=== PATIENT | male | born 1965 | race Caucasian/White ===

== ENCOUNTER 2022-06-08 00:45 | Inpatient (IN) | payer BC ==
[~2022-06-08] VITALS: Ht 160 cm; Wt 78.9 kg
[2022-06-08 01:13] VITALS: BP 191/114
--- NOTE | 2022-06-08 01:27 | NUR ---
to bed 8
[2022-06-08] MEDS ORDERED: LABETALOL 20 MG/4 ML VIAL IVP ONE (01:45)
[2022-06-08] MEDS ORDERED: NACL 0.9% 1,000 ML IV ONE (01:45)
[2022-06-08] MEDS ORDERED: INSULIN REGULAR, HUMAN 100 UNIT/ML VIAL IVP ONE ×2 (01:45→04:20)
--- NOTE | 2022-06-08 01:46 | NUR ---
56YR OLD MALE BIB SELF C/O HEADACHE DIZZYNESS X1 DAY. PT IS HYPERTENSIVE AT 173/117. IS DIZZY AND HEADACHE X1DAY. PT STATES FEELING OFF BALANCE. A&OX4. ON BEDSIDE CARDAIC MONITOR. PT IS GERMAN SPEAKING ONLY. HOB ELEVATED BED AT LOWEST POSITION WITH SIDE RAILS UP X2 NKDA PROSTATE
[2022-06-08 02:06] LABS: BASOPHILS % (AUTO) 0.6 % (0.0-2.0); EOSINOPHILS # (AUTO) 0.1 K/uL (0-0.4); EOSINOPHILS % (AUTO) 1.5 % (0.0-4.0); HEMATOCRIT 44.7 % (36-52); HEMOGLOBIN 15.2 g/dL (12.0-18.0); LYMPHOCYTES # (AUTO) 2.7 K/uL (2.0-11.5); LYMPHOCYTES % (AUTO) 33.7 % (20.5-51.1); MEAN CORPUSCULAR HEMOGLOBIN 28 pg (27-31); MEAN CORPUSCULAR HGB CONC 34 g/dL (33-37); MEAN CORPUSCULAR VOLUME 82.5 fL (80-94); MONOCYTES # (AUTO) 0.5 K/uL (0.8-1.0); MONOCYTES % (AUTO) 6.9 % (1.7-9.3); NEUTROPHILS # (AUTO) 4.6 K/uL (1.8-7.7); NEUTROPHILS % (AUTO) 57.3 % (42.2-75.2); PLATELET COUNT (AUTO) 256 K/uL (140-450); RED BLOOD CELL COUNT(AUTO) 5.42 MIL/uL (4.20-6.10)
[2022-06-08 02:20] LABS: ALBUMIN 4.1 g/dL (3.4-5.0); CARBON DIOXIDE 29.3 mmol/L (21-32); CHLORIDE 97 mmol/L (98-107); GFR ARICAN-AMERICAN 100 mL/min (>90); POTASSIUM 3.3 mmol/L (3.5-5.1); SODIUM SERUM 136 mmol/L (136-145); TOTAL BILIRUBIN 0.3 mg/dL (0.0-1.0); UREA NITROGEN, BLOOD 14 mg/dL (7-18)
[2022-06-08 02:33] LABS: GLUCOSE 408 mg/dL (74-106)
[2022-06-08] MEDS ORDERED: MORPHINE SULFATE 4 MG/ML SYR IVP ONE (02:55)
--- NOTE | 2022-06-08 04:08 | NUR ---
PT RESTING IN BED ON BEDSIDE EXPEDITER. PT PAIN LEVEL 5/10. HOB ELEVATED. RESP EVEN AND UNLABORED.
[2022-06-08] MEDS ORDERED: ONDANSETRON 4 MG/2 ML VIAL IVP ONE (04:40)
--- NOTE | 2022-06-08 04:55 | NUR ---
Pt still having nausea and vomiting. Zofran 4mg IV given
--- NOTE | 2022-06-08 06:10 | NUR ---
Pt able to rest at this time. Headache improved to 5/10. No vomiting at this time
[2022-06-08] MEDS: BLOOD GLUCOSE MONITORING 1 DEV DEV FS SCH ×8 (07:00→22:29)
--- NOTE | 2022-06-08 07:20 | NUR ---
ASSUMED PATIENT CARE, NURSING ASSESSMENT COMPLETED.
--- NOTE | 2022-06-08 09:26 | NUR ---
DISPO AND MEDICAL DECISION MAKING, INPATIENT ADMISSION FOR FURTHER MANAGEMENT. PATIENT CARE REPORT TO TIFFANY, PATIENT'S SON UPDATED OF PATIENT'S ADMISSION.
[2022-06-08] MEDS: NACL 0.9% 1,000 ML IV SCH ×2 (09:45→16:43)
--- NOTE | 2022-06-08 09:50 | NUR ---
RECEIVE 56YR MALE PATIENT FROM ER VISIT DUE TO R HEADACHE WHO IS CITIZEN OF [place] SPEAKER POOR HISTORIAN REGARD TO MEDICAL HISTORY. PATIENT DIAGNOSIS WITH UNCONTROLLED DM & HYPERTENSION. PATIENT HAS NKA, CODE STATUS JUST VERIFY WITH WOULD BE FULL CODE. ON TEL MONITOR SR, RA, ACCUCHECK Q 2HOURS (ADMIT WITH 351 IN MST FLOOR), PIV AT R. AC 20G PATENT (SUPPOSE HAVE NS INFUSING AT 100ML/HR) SALINE LOCK. NURSE WILL START NS 100ML/HR. VITAL WITHIN PATIENT;S BASELINE (T-P-R: 98.6-85-20, BP:174/105, O2 SAT 100%) WILL CONTINUE TO MONITOR
[2022-06-08] MEDS ORDERED: DOCUSATE SODIUM 100 MG GELCAP PO PRN (09:55)
[2022-06-08] MEDS ORDERED: LORazepam 2 MG/ML VIAL IVP PRN (09:55)
[2022-06-08] MEDS ORDERED: ZOLPIDEM 10 MG TAB PO PRN (09:55)
[2022-06-08] MEDS: INSULIN LISPRO SLIDING SCALE 100 UNITS/ML VIAL SUBQ PRN ×8 (10:10→22:30)
--- NOTE | 2022-06-08 10:37 | NUR ---
PATIENT HAS BEEN SCREENED AND CATEGORIZED MODERATE NUTRITION RISK. PATIENT WILL BE SEEN WITHIN 3-5 DAYS OF ADMISSION. 06/08/22-06/13/[address]
[2022-06-08 12:00] VITALS: BP 141/88
[2022-06-08] MEDS: POTASSIUM CHLORIDE 10 MEQ TABER PO PRN (15:29)
[2022-06-08] MEDS: ONDANSETRON 4 MG/2 ML VIAL IVP PRN ×2 (15:29→22:15)
[2022-06-08 16:00] VITALS: BP 161/98
[2022-06-08] MEDS ORDERED: lisinopriL 20 MG TAB ONE (16:50)
[2022-06-08] MEDS ORDERED: hydrALAZINE 20 MG/ML VIAL IVP PRN (18:25)
[2022-06-08] MEDS: ACETAMINOPHEN 325 MG TAB PO PRN (18:29)
[2022-06-08] MEDS ORDERED: lisinopriL 20 MG TAB PO SCH (18:59)
--- NOTE | 2022-06-08 19:49 | NUR ---
ENDORSE PATIENT IN STABLE CONDITION TO PM SHIFT NURSE WHILE IV NS INFUSING VIA R.AC 20G SITE. PATIENT'S ACCUCHECK CHANGE FROM Q2HR TO AC&HS BECAUSE PATIENT'S 1700'S ACCUCHECK 183 & 1900 BLOOD SUGAR IS 169
--- NOTE | 2022-06-08 19:50 | NUR ---
RECEIVED REPORT FROM MORNING SHIFT RN. PT IS AOX4, TAJIK SPEAKING, AMBULATORY, ABLE TO VERBALIZE NEEDS AND ABLE TO FOLLOW COMMAND. MOTHER WAS ON BEDSIDE. PT IS ON ROOM AIR AND ON CARDIAC DIET. PT HAS IV ON RIGHT AC GAUGE 20 RUNNING WITH NS AT 100. PT SKIN IS INTACT. NO S/S OF RESPIRATORY DISTRESS AND NO COMPLAIN OF PAIN AT THIS TIME. ALL SAFETY MEASURES IMPLEMENTED. BED IN LOW POSITION, BED WHEELS ON LOCK AND CALL LIGHT WITHIN REACH.
[2022-06-08 20:00] VITALS: BP 177/97
--- NOTE | 2022-06-08 21:12 | NUR ---
SCHEDULED AND PRESCRIBED MEDICATION WAS GIVEN TO PT PER MD ORDER. ALL SAFETY MEASURES IMPLEMENTED. BED IN LOW POSITION, BED WHEELS ON LOCK AND CALL LIGHT WITHIN REACH.
--- NOTE | 2022-06-08 21:20 | NUR ---
HYDRALAZINE WAS GIVEN TO PT DUE TO BP- 177/97 AND PULSE OF 71
[2022-06-08] MEDS: MORPHINE SULFATE 2 MG/ML SYR IVP PRN (22:15)
--- NOTE | 2022-06-08 22:15 | NUR ---
PRN PAIN MEDICATION WAS GIVEN TO PT DUE TO GEN. PAIN WITH PAIN SCALE OF 7/10 ALL SAFETY MEASURES IMPLEMENTED. BED IN LOW POSITION, BED WHEELS ON LOCK AND CALL LIGHT WITHIN REACH.
--- NOTE | 2022-06-08 22:20 | NUR ---
LATEST BP OF PT IS 156/84 WITH PULSE OF 84.
[2022-06-09] VITALS: BP 125/80
--- NOTE | 2022-06-09 | NUR ---
PT IS SLEEPING. CHEST RISE AND FALL SYMMETRICALLY NOTED. RESPIRATION IS EVEN AND UNLABORED. ALL SAFETY MEASURES IMPLEMENTED. BED IN LOW POSITION, BED WHEELS ON LOCK AND CALL LIGHT WITHIN REACH.
[2022-06-09] MEDS: NACL 0.9% 1,000 ML IV SCH ×2 (02:32→12:11)
[2022-06-09] MEDS: ACETAMINOPHEN 325 MG TAB PO PRN ×2 (03:22→10:36)
--- NOTE | 2022-06-09 03:22 | NUR ---
TYLENOL WAS GIVEN TO PT DUE TO HEADACHE. ALL SAFETY MEASURES IMPLEMENTED. BED IN LOW POSITION, BED WHEELS ON LOCK AND CALL LIGHT WITHIN REACH.
[2022-06-09 04:00] VITALS: BP 140/89
[2022-06-09] MEDS: BLOOD GLUCOSE MONITORING 1 DEV DEV FS SCH ×4 (06:36→20:59)
[2022-06-09] MEDS: INSULIN LISPRO SLIDING SCALE 100 UNITS/ML VIAL SUBQ PRN ×4 (06:36→21:03)
--- NOTE | 2022-06-09 06:36 | NUR ---
PT BLOOD GLUCOSE IS 241. HUMALOG INSULIN 4 UNITS WAS GIVEN TO THE PT.
[2022-06-09 06:54] LABS: ANION GAP 12.2 (8-16); CARBON DIOXIDE 24.2 mmol/L (21-32); CREATININE 0.9 mg/dL (0.6-1.3); POTASSIUM 3.4 mmol/L (3.5-5.1)
--- NOTE | 2022-06-09 07:23 | NUR ---
PT IS STABLE. ENDORSED PT TO THE MORNING SHIFT NURSE FOR CONTINUITY OF CARE.
[2022-06-09 08:00] VITALS: BP 157/89
[2022-06-09] MEDS ORDERED: lisinopriL 20 MG TAB PO SCH (09:00)
[2022-06-09] MEDS: lisinopriL 20 MG TAB PO SCH ×2 (10:35→21:00)
[2022-06-09] MEDS: POTASSIUM CHLORIDE 10 MEQ TABER PO PRN (10:35)
[2022-06-09 12:00] VITALS: BP 174/97
[2022-06-09] MEDS ORDERED: amLODIPine 5 MG TAB PO SCH (14:40)
--- NOTE | 2022-06-09 17:41 | NUR ---
RECEIVE CALL FROM RADIOLOGIST, DR. QUINTANA THAT PATIENT'S HEAD CT W/ CONTRAST SHOWS THAT PATIENT HAS SUBARACHNOID HEMORRHAGE. INFORMED, & CHARGE NURSE AWARD. PATIENT PENDING TO TRANSFER TO UPPER LEVEL OF CARE.
--- NOTE | 2022-06-09 17:45 | NUR ---
DC PLANNING: PATIENT HAS AN ORDER TO GO TO HIGHER LEVEL OF CARE FOR NEUROSURGICAL EVALUATION. FAXED TO [facility] [phone] AND VANCE PHILLIPS FAXED TO [facility] .HOUSE SUP TO FOLLOW
[2022-06-09 18:00] VITALS: BP 180/89
[2022-06-09] MEDS: MORPHINE SULFATE 2 MG/ML SYR IVP PRN (18:00)
--- NOTE | 2022-06-09 18:18 | NUR ---
Spoke to Dr. Stewart regarding CT scan result and patient to transfer to higher level of care. Faxed all papers to transfer center in [facility] and spoke to Melissa regarding transfer. The supervisor liquid yeast also called and faxed all papers and spoke to [facility] house fellow and stated at capacity and no Tele beds and no ICU beds. commissioning manager aware and faxed papers to insurance for the transfer. Patient will be transfer to ICU per Dr. Stewart for monitoring
[2022-06-09] MEDS ORDERED: NICARDIPINE HYDROCHLORIDE 25 MG in NACL 0.9% 240 ML IV SCH (19:00)
--- NOTE | 2022-06-09 19:30 | NUR ---
RECEIVED REPORT FROM DAY SHIFT NURSE TIFFANY FOR CONTINUITY OF CARE. PT AWAKE, EYES CLOSED. AND SON AT BEDSIDE. RESPIRATIONS EVEN AND UNLABORED. ON ORACLE ERP DEVELOPER. SKIN INTACT, WARM AND DRY TO TOUCH. IV SITE ON RAC, INFUSING IVF. INITIAL ASSESSMENT DONE. POC DISCUSSED WITH PT AND GILDA GUNN. CALL LIGHT WITHIN REACH. SAFETY PRECAUTIONS IN PLACE. PT FOR TRANSFER TO ICU BED 3. WILL FOLLOW-UP FROM ICU.
[2022-06-09 20:00] VITALS: BP 124/77
--- NOTE | 2022-06-09 20:00 | NUR ---
V/S TAKEN. 124/77, 65, 20, 65, 95% ON RA.
--- NOTE | 2022-06-09 20:00 | NUR ---
Patient's Plan of Care was discussed and reviewed with RENZO HARRINGTON:
--- NOTE | 2022-06-09 20:09 | NUR ---
GIVE REPORT TO ICU NURSE AFTER HEAD CT FIND THAT PATIENT'S HEADACHE MIGHT CAUSE BY SUBARACHNOID HEMORRHAGE. PIV AT RAC 20 INFUSING NS AT 100ML/HR
--- NOTE | 2022-06-09 21:08 | NUR ---
ADMINISTERED DUE MEDS. PT TOLERATED WELL. JEN CHONG AT BEDSIDE. PT WHEELED OUT VIA PT BED TO ICU. PT AND FAMILY AWARE. AND SON AT BEDSIDE. ALL BELONGINGS AND PT CHART BROUGHT TOGETHER WITH PT TO ICU. PT IS STABLE.
--- NOTE | 2022-06-09 21:15 | NUR ---
Received pt from Tele via bed, Report given ahead of time. Situated pt. & will start Nicardipine gtts CATINA ( Prepared Drip. before pt. Arrived ) Started @2116. Baseline BP= 160/82mmHg, HR= 77
--- NOTE | 2022-06-09 21:51 | NUR ---
picked up by EMILY to go to [facility] for HLOC
== END 2022-06-09 22:00 | disposition home or self-care (01) | DRG 66 ==
LOC: MED 00:45 → MTU 06:43 → MIC 06-09 21:20
PROVIDERS: ADMIT Hospitalist; ATTEND Emergency Medicine
DX: I60.9 Nontraumatic subarachnoid hemorrhage, unspecified (principal); I10 Essential (primary) hypertension; R73.03 Prediabetes; R73.9 Hyperglycemia, unspecified; I16.0 Hypertensive urgency; Z20.822 Contact with and (suspected) exposure to COVID-19
CPT/HCPCS: 36415; 70450; 80048; 80053; 82948; 83036; 84484; 85025; 87081; 93005; 96361; 96374; 96375; 96376; 99285; J0360; J1644; J1815; J2270; J2405; J3490; J7030